=== PATIENT | male | born 1955 | race African-American/Black ===

== ENCOUNTER 2018-07-04 07:33 | Emergency (ER) | payer OTHER ==
[~2018-07-04] VITALS: Ht 180.3 cm; Wt 89.4 kg
[2018-07-04 07:45] VITALS: BP 169/88
[2018-07-04] MEDS ORDERED: CYCL5TAB PO (08:41)
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
== END 2018-07-04 09:22 | disposition home or self-care (01) ==
LOC: ER 07:33
DX: I10 Essential (primary) hypertension (principal); M43.6 Torticollis; M79.18 Myalgia, other site; M25.561 Pain in right knee; M25.562 Pain in left knee; M25.531 Pain in right wrist; M25.532 Pain in left wrist; M79.652 Pain in left thigh; M79.651 Pain in right thigh; F10.20 Alcohol dependence, uncomplicated; Y90.9 Presence of alcohol in blood, level not specified; V43.53XA Car driver injured in collision with pick-up truck in traffic accident, initial encounter; Y93.89 Activity, other specified; Y92.410 Unspecified street and highway as the place of occurrence of the external cause; Y99.8 Other external cause status
CPT/HCPCS: 99283